=== PATIENT | female | born 1955 | race Caucasian/White ===

== ENCOUNTER 2023-01-25 23:18 | Emergency (ER) | payer MEDICARE ==
[~2023-01-25] VITALS: Ht 157.5 cm; Wt 84.2 kg
[2023-01-25 23:24] VITALS: BP 160/99
[2023-01-25] MEDS ORDERED: PRED10 PO (23:47)
[2023-01-25] MEDS ORDERED: ALLEGRA ALLERGY60 MG PO (23:47)
== END 2023-01-26 00:15 | disposition home or self-care (01) ==
LOC: ER 23:18
DX: L25.9 Unspecified contact dermatitis, unspecified cause (principal); Z88.0 Allergy status to penicillin; Z88.8 Allergy status to other drugs, medicaments and biological substances; Z88.5 Allergy status to narcotic agent; Z91.048 Other nonmedicinal substance allergy status
CPT/HCPCS: 99282; A9270; J7512

== ENCOUNTER 2024-12-27 18:36 | Emergency (ER) | payer MEDICARE ==
[~2024-12-27] VITALS: Ht 160 cm; Wt 81.7 kg
[~2024-12-27 18:36] MED LIST: ALLEGRA ALLERGY60 MG PO; PRED10 PO
[2024-12-27 19:10] LABS: Source, Urine Clean Catch
[2024-12-27 19:14] LABS: Appearance, Urine Clear (Clear); Bilirubin, Urine Neg (Neg); Blood, Urine 1+ (Neg); Color, Urine Yellow (P-Yellow); Glucose Qualitative, Urine Neg (Neg); Ketones, Urine Neg (Neg); Leukocyte Esterase, Urine Neg (Neg); Nitrite, Urine Neg (Neg); Protein, Urine 1+ (Neg); Specific Gravity, Urine 1.025 (1.003-1.022); Urobilinogen, Urine NORM (Normal)
[2024-12-27 19:21] LABS: Red Blood Cells, Urine 0-2 /hpf (0-2)
[2024-12-27 19:22] LABS: Bacteria Rare /hpf; Squamous Epithelial Cells Rare /hpf (Few)
[2024-12-27 21:10] VITALS: BP 177/87
[2024-12-27] MEDS ORDERED: CEFIXIME400 MG PO (22:11)
[2024-12-27] MEDS ORDERED: Cleocin HCl150 MG PO (22:11)
== END 2024-12-27 22:42 | disposition home or self-care (01) ==
LOC: ER 18:36
PROVIDERS: Student in an Organized Health Care Education/Training Program
DX: L29.2 Pruritus vulvae (principal); Z88.8 Allergy status to other drugs, medicaments and biological substances; Z88.1 Allergy status to other antibiotic agents; Z88.5 Allergy status to narcotic agent; Z79.899 Other long term (current) drug therapy
CPT/HCPCS: 81001; 99283

== ENCOUNTER 2025-01-30 06:37 | Emergency (ER) | payer MEDICARE ==
[~2025-01-30] VITALS: Ht 160 cm; Wt 77.1 kg
[~2025-01-30 06:37] MED LIST changes: +CEFIXIME400 MG PO; +Cleocin HCl150 MG PO
[2025-01-30 07:52] VITALS: BP 159/88
[2025-01-30 09:56] LABS: BASOPHILS ABSOLUTE AUTO 0.03 K/mm3 (0.00-0.23); BASOPHILS PERCENT AUTO 1 % (0-2); EOSINOPHILS ABSOLUTE AUTO 0.18 K/mm3 (0.00-0.68); EOSINOPHILS PERCENT AUTO 4 % (0-6); Hematocrit 40.8 % (33.0-51.0); Hemoglobin 13.5 g/dL (11.5-16.0); IMMATURE GRAN ABSOLUTE AUTO 0.01 K/mm3 (0.00-0.10); IMMATURE GRAN PERCENT AUTO 0 % (0-1); LYMPHOCYTES ABSOLUTE AUTO 0.94 K/mm3 (0.84-5.20); LYMPHOCYTES PERCENT AUTO 22 % (21-46); MONOCYTES ABSOLUTE AUTO 0.36 K/mm3 (0.16-1.47); MONOCYTES PERCENT AUTO 9 % (4-13); Mean Corpuscular HGB Conc 33.1 g/dL (31.5-36.5); Mean Corpuscular Volume 90 fL (80-100); NEUTROPHILS ABSOLUTE AUTO 2.73 K/mm3 (1.96-9.15); NEUTROPHILS PERCENT AUTO 64 % (41-73); NRBC ABSOLUTE 0.00 K/mm3 (0.00-0.02); NRBC Auto 0.0 /100 WBC (0.0-0.2); Platelet Count 230 K/mm3 (150-400); RDW Coefficient Variation 12.5 % (11.7-14.2); RDW Standard Deviation 41.2 fL (35.1-46.3)
[2025-01-30 10:22] LABS: Alanine Aminotransfer (ALT/SGP 24.0 U/L (12-78); Albumin, Blood 3.5 g/dL (3.4-5.0); Albumin/Globulin Ratio 1.0 (0.8-1.8); Anion Gap 6.0 mmol/L (3-11); Aspartate Aminotrans (AST/SGOT 14.0 U/L (12-37); Bilirubin, Direct 0.2 mg/dL (0.0-0.3); Bilirubin, Indirect 0.6 mg/dL (0.1-0.7); Bilirubin, Total 0.8 mg/dL (0.1-1.0); Blood Urea Nitrogen 16.0 mg/dL (8-24); CO2, Blood 30.0 mmol/L (21-32); Calcium, Blood 8.8 mg/dL (8.5-10.1); Chloride, Blood 108.0 mmol/L (98-108); Creatinine, Blood 0.77 mg/dL (0.40-1.00); Globulin, Blood 3.6 g/dL (2.2-4.0); Glucose, Blood 109.0 mg/dL (70-99); Potassium, Blood 3.9 mmol/L (3.5-5.5); Sodium, Blood 140.0 mmol/L (136-145); Total Protein, Blood 7.1 g/dL (6.4-8.2)
[2025-01-30 11:26] LABS: Campylobacter Sp Not Detected (NOT DETECT); E. Coli O157 Not Detected (NOT DETECT); Enteroaggregative E. coli-EAEC Not Detected (NOT DETECT); Enteropathogenic E. coli-EPEC Not Detected (NOT DETECT); Enterotoxigenic E. coli-ETEC Not Detected (NOT DETECT); Salmonella Sp Not Detected (NOT DETECT); Shiga Toxin-prod E. coli-STEC Not Detected (NOT DETECT); Shigella/Enteroin E. coli-EIEC Not Detected (NOT DETECT); Vibrio Sp Not Detected (NOT DETECT)
[2025-01-30] MEDS ORDERED: DIFICID200 MG PO (11:45)
== END 2025-01-30 13:31 | disposition home or self-care (01) ==
LOC: ER 06:37
PROVIDERS: Student in an Organized Health Care Education/Training Program
DX: A04.72 Enterocolitis due to Clostridium difficile, not specified as recurrent (principal); N90.4 Leukoplakia of vulva; Z88.0 Allergy status to penicillin; Z88.5 Allergy status to narcotic agent; Z91.048 Other nonmedicinal substance allergy status; Z79.899 Other long term (current) drug therapy; Z95.810 Presence of automatic (implantable) cardiac defibrillator
CPT/HCPCS: 80048; 80076; 83690; 85025; 87324; 87507; 99284; A9270

== ENCOUNTER 2025-03-30 13:19 | Day surgery (SDC) | payer MEDICARE ==
[2025-03-30] VITALS (12 sets, daily range): BP systolic 147–159; BP diastolic 77–99
[~2025-03-30] VITALS: Ht 157.5 cm; Wt 76.7 kg
[~2025-03-30 13:19] MED LIST changes: +Carvedilol12.5 MG PO; +DIFICID200 MG PO; +FURO20 PO; +LISI20 PO
[2025-03-30] MEDS ORDERED: ATORVASTATIN CA10 MG PO (13:56)
[2025-03-30] MEDS ORDERED: FentaNYL Citrate 50 MCG/ML 2 ML Injection ONE ×2 (13:56→15:39)
--- NOTE | 2025-03-30 14:14 | NUR ---
Ambulatory in Day Surgery. History, Chart, Medications and Allergies reviewed before start of procedure. Patient confirms NPO status and agrees with scheduled surgery. Pre-Op teaching done. Pt verbalizes understanding. Patient States Post-Procedure ride home has been arranged. Pt belongings placed underneath gurney for safekeeping. Pt glasses placed in her shoe in belonging bag underneath gurney for safekeeping.
[2025-03-30] MEDS ORDERED: Bupivacaine 0.5% W/EPI 1:200000 SDV 30 ML Vial ONE (14:27)
[2025-03-30] MEDS ORDERED: Rocuronium Bromide 10 MG/ML 5ML Injection IV ONE (14:40)
[2025-03-30] MEDS ORDERED: Bupivacaine 0.5% HCl 5 MG/ML 30MLVIAL ONE (15:06)
[2025-03-30] MEDS ORDERED: Estradiol Vag Cream 0.1 MG/G 42.5 GM Tube ONE (15:14)
[2025-03-30] MEDS ORDERED: Ondansetron HCl 2 MG / ML 2ML Vial ONE (15:19)
[2025-03-30] MEDS ORDERED: Dexamethasone Sod Phos 10 MG/ML 1ML VIAL ONE (15:19)
[2025-03-30] MEDS ORDERED: Ketorolac Tromethamine 30mg Vial ONE (15:19)
[2025-03-30] MEDS ORDERED: FentaNYL Citrate 50 MCG/ML 2 ML Injection IV PRN ×2 (15:35)
[2025-03-30] MEDS ORDERED: Metoclopramide HCl 5MG / ML 2ML Vial IV PRN (15:35)
[2025-03-30] MEDS ORDERED: Albuterol 2.5 MG/3 ML VIAL INH PRN (15:35)
[2025-03-30] MEDS ORDERED: Ondansetron HCl 2 MG / ML 2ML Vial IV PRN (15:35)
--- NOTE | 2025-03-30 16:06 | NUR ---
REPORT RECEIVED FROM MARIA ELENA SALINAS. VSS. PT ON RA. PT [id number]. PT ABLE TO REPOSITION SELF IN BED. PT REQUESTING PO FLUIDS AND FOOD AND TOLERATING THEM WELL. PT HAS ROBERT PAD IN PLACE WITH SCANT SPOTTING NOTED. PT REPORTS CHRONIC LENORE PAIN TO LEFT HIP, DENIES NAUSEA OR OTHER DISCOMFORTS.
--- NOTE | 2025-03-30 17:05 | NUR ---
Discharge instructions reviewed with patient. Patient verbalizes understanding. Copy given to patient to take home. Ambulatory in Day Surgery. AMBULATED TO BATHROOM AND VOIDED WITHOUT DIFFICULTY. SMALL AMOUNT OF RED DRANINAGE ON ROBERT PAD. AFTER AMBULATING PATIENT VOMITED. DECLINED NEED FOR ANTIEMETIC. STATES SHE FELT BETTER AFTER VOMITING. D/C HOME VIA W/C.
== END 2025-03-30 17:00 | disposition home or self-care (01) ==
LOC: ORSCMMR 13:19 → ORD 15:00 → ORSCMMR 17:00
PROVIDERS: Obstetrics & Gynecology
PROC: 0HBAXZX Excision of Inguinal Skin, External Approach, Diagnostic (ICD-10-PCS; principal; 2025-03-30 15:00)
DX: N90.0 Mild vulvar dysplasia (principal); E78.5 Hyperlipidemia, unspecified; G47.33 Obstructive sleep apnea (adult) (pediatric); Z79.899 Other long term (current) drug therapy; Z86.711 Personal history of pulmonary embolism
CPT/HCPCS: 88305; 88342; A9270; J1100; J1885; J2405; J2704; J3010; J7120